=== PATIENT | male | born 1950 | race Caucasian/White ===

== ENCOUNTER 2018-10-25 12:03 | Emergency (ER) | payer MEDICARE, OTHER ==
--- NOTE | 2018-10-25 12:23 | EDM.PDOC ---
ED HPI GENERAL MEDICAL PROBLEM - General Chief Complaint: Lower Extremity Injury/Pain Stated Complaint: GROUT Time Seen by Provider: 10/25/18 12:21 - History of Present Illness INITIAL COMMENTS - FREE TEXT/NARRATIVE: HISTORY AND PHYSICAL: History of present illness: Patient 67-year-old white male gentleman concern of bilateral foot pain he has history of gouty arthritis and states this is consistent with acute gouty arthritis flare. He is responding well to indomethacin in the past and requests prescription for such Review of systems: As per history of present illness and below otherwise all systems reviewed and negative. Past medical history: As per history of present illness and as reviewed below otherwise noncontributory. Surgical history: As per history of present illness and as reviewed below otherwise noncontributory. Social history: No reported history of drug or alcohol abuse. Family history: As per history of present illness and as reviewed below otherwise noncontributory. Physical exam: HEENT: Atraumatic, normocephalic, pupils reactive, negative for conjunctival pallor or scleral icterus, mucous membranes moist, throat clear, neck supple, nontender, trachea midline. Lungs: Clear to auscultation, breath sounds equal bilaterally, chest nontender. Heart: S1S2, regular, negative for clicks, rubs, or JVD. Abdomen: Soft, nondistended, nontender. Negative for masses or hepatosplenomegaly. Negative for costovertebral tenderness. Pelvis: Stable nontender. Genitourinary: Deferred. Rectal: Deferred. Extremities: Atraumatic, negative for cords or calf pain. Neurovascular unremarkable. Patient has tenderness to palpation in the region of the first metatarsal bilaterally. Neuro: Awake, alert, oriented. Cranial nerves II through XII unremarkable. Cerebellum unremarkable. Motor and sensory unremarkable throughout. Exam nonfocal. Diagnostics: None Therapeutics: None Impression: #1 bilateral foot pain #2 gouty arthritis Definitive disposition and diagnosis as appropriate pending reevaluation and review of above. bilateral feet Pain Score (Numeric/FACES): 6 - Related Data Allergies Allergy/AdvReac Type Severity Reaction Status Date / Time No Known Allergies Allergy Verified 10/25/18 12:10 Home Meds: Home Meds . [Unable to Verify Home Med List] 10/25/18 [History] Review of Systems - Review of Systems Review Of Systems: ROS reveals no pertinent complaints other than HPI. ED EXAM, GENERAL - Physical Exam Exam: See Below (The dictation) Course - Vital Signs Last Recorded V/S: Last Vital Signs Temp 37.1 C 10/25/18 12:10 Pulse 102 H 10/25/18 12:10 Resp 18 10/25/18 12:10 BP 139/74 10/25/18 12:10 Pulse Ox 95 10/25/18 12:10 Departure - Departure Time of Disposition: 12:23 Disposition: Home, Self-Care 01 Condition: Good Clinical Impression: Gouty arthritis - Discharge Information Referrals: PCP,Unknown [Primary Care Provider] - Additional Instructions: The following information is given to patients seen in the emergency department who are being discharged to home. This information is to outline your options for follow-up care. We provide all patients seen in our emergency department with a follow-up referral. The need for follow-up, as well as the timing and circumstances, are variable depending upon the specifics of your emergency department visit. If you don't have a primary care physician on staff, we will provide you with a referral. We always advise you to contact your personal physician following an emergency department visit to inform them of the circumstance of the visit and for follow-up with them and/or the need for any referrals to a consulting specialist. The emergency department will also refer you to a specialist when appropriate. This referral assures that you have the opportunity for followup care with a specialist. All of these measure are taken in an effort to provide you with optimal care, which includes your followup. Under all circumstances we always encourage you to contact your private physician who remains a resource for coordinating your care. When calling for followup care, please make the office aware that this follow-up is from your recent emergency room visit. If for any reason you are refused follow-up, please contact the [facility] emergency department at and asked to speak to the emergency department charge nurse. Indomethacin as prescribed follow-up primary medical doctor as needed as discussed return as needed as discussed
== END 2018-10-25 12:34 | disposition home or self-care (01) ==
LOC: MW.ED 12:03
DX: M10.9 Gout, unspecified (principal)
CPT/HCPCS: 99283